=== PATIENT | female | born 1955 | race Two or more races ===

== ENCOUNTER 2021-05-01 17:54 | Emergency (ER) | payer SELFPAY ==
[~2021-05-01] VITALS: Ht 154.9 cm; Wt 60.0 kg
--- NOTE | 2021-05-01 18:10 | NUR ---
PT JIM, VISITING FROM [facility] AND FORGOT INSULIN AT HOME, [employer] 474, SBP 230. PT A&O, RESPS EVEN AND UNLABORED, NADN, ALL MONITORS ATTACHED, NSR.
--- NOTE | 2021-05-01 18:50 | NUR ---
bedside report given to misael sanchez
[2021-05-01] MEDS ORDERED: INSULIN GLARGINE 100 UNITS/ML, PEN SQ-INSULIN ONE (19:00)
[2021-05-01] MEDS ORDERED: ASPIRIN 81 MG TABLET CHEW PO ONE (19:00)
[2021-05-01] MEDS ORDERED: INSULIN REGULAR 100 UNITS/ML, 3ML VIAL SQ-INSULIN ONE (19:00)
[2021-05-01] MEDS ORDERED: ASPIRIN 81 MG TABLET CHEW ONE (19:27)
[2021-05-01] MEDS ORDERED: INSULIN SINGLE DOSE, ER ONE (19:27)
[2021-05-01] MEDS ORDERED: ONDANSETRON 2MG/ML, 2ML ONE (19:29)
[2021-05-01] MEDS ORDERED: ONDANSETRON 2MG/ML, 2ML IVPush ONE (19:30)
[2021-05-01 19:59] LABS: BASOPHILS % (AUTO) 1 % (0-1); EOSINOPHILS % (AUTO) 0 % (1-7); LYMPHOCYTES % (AUTO) 14 % (22-44); MEAN CORPUSCULAR HEMOGLOBIN 28.4 pg (27.0-34.8); MEAN CORPUSCULAR HGB CONC 32.8 g/dL (32.4-35.8); MEAN PLATELET VOLUME 9.3 fL (7.4-10.4); MONOCYTES % (AUTO) 2 % (2-9); NEUTROPHILS % (AUTO) 83 % (42-75); PLATELET COUNT 415 x10^3/uL (130-400); RED BLOOD COUNT 4.31 x10^6/uL (3.82-5.3); RED CELL DISTRIBUTION WIDTH 14.5 % (9.6-15.2)
[2021-05-01 20:09] LABS: CHLORIDE 99 mmol/L (98-107)
[2021-05-01] MEDS ORDERED: PROMETHAZINE 25 MG/ML, 1ML ONE (20:12)
[2021-05-01] MEDS ORDERED: LABETALOL 5MG/ML, 20ML ONE (20:12)
[2021-05-01 20:18] LABS: ALANINE AMINOTRANSFERASE 56 U/L (12-78); ALBUMIN 2.5 g/dL (3.4-5.0); ALKALINE PHOSPHATASE 295 U/L (45-117); ANION GAP 12 mmol/L (5-15); BILIRUBIN,TOTAL 0.3 mg/dL (0.2-1.0); CALCIUM 8.6 mg/dL (8.5-10.1); CREATININE 2.14 mg/dL (0.55-1.02); TOTAL PROTEIN 7.6 g/dL (6.4-8.2); TROPONIN I < 0.015 ng/mL (0.000-0.045)
[2021-05-01] MEDS ORDERED: LABETALOL 5MG/ML, 20ML IVPush ONE (20:30)
[2021-05-01] MEDS ORDERED: PROMETHAZINE 25 MG/ML, 1ML IM ONE (20:30)
[2021-05-01 20:56] VITALS: BP 183/66
--- NOTE | 2021-05-01 21:12 | NUR ---
LORENZO ([facility])- [phone]
--- NOTE | 2021-05-01 21:56 | NUR ---
PT UNSTEADY DURING ROAD TEST, ABLE PASS PO CHALLENGE.
--- NOTE | 2021-05-01 22:02 | NUR ---
PT ABLE TO WALK FROM ROOM TO RESTROOM ON STEADY GAIT, RERORTS SHE HAS NOT FELT DIZZY AT HOME ONLY ONCE TODAY. DR. COLES AT BEDSIDE.
== END 2021-05-01 22:24 | disposition home or self-care (01) ==
LOC: ED 21:44
DX: R11.2 Nausea with vomiting, unspecified (principal); Z76.0 Encounter for issue of repeat prescription; E11.65 Type 2 diabetes mellitus with hyperglycemia; I11.0 Hypertensive heart disease with heart failure; I50.9 Heart failure, unspecified; R07.9 Chest pain, unspecified; R94.31 Abnormal electrocardiogram [ECG] [EKG]
CPT/HCPCS: 36415; 71045; 80053; 82962; 83690; 84484; 85025; 93005; 96372; 96374; 96375; 99285; J1815; J2405; J2550